=== PATIENT | female | born 1985 | race Hispanic/Latino ===

== ENCOUNTER 2021-01-13 18:13 | Emergency (ER) | payer SELFPAY ==
[2021-01-13 18:15] VITALS: BP 98/62; PULSE 87; RESP 16; TEMP 36.6; O2SAT 98; BMI 27.8
--- NOTE | 2021-01-13 18:42 | US_ITS ---
STUDY: FIRST TRIMESTER OBSTETRICAL ULTRASOUND REASON FOR EXAM: Female, 35 years old LLQ pain LMP: 12/02/20 TECHNIQUE: Transvaginal TECHNICAL QUALITY: Adequate. PRIOR ULTRASOUND: None. FINDINGS: There is visualization of a single gestational sac in a normal intrauterine position. The mean sac diameter (MSD) measures 2.5 cm, indicating an estimated gestational age (EGA) of 7 weeks, 4 days. The gestational sac shape is within normal limits. There is a visualized yolk sac. The placenta is non-visualized. There is visualization of a live embryo. The crown-rump length (CRL) measures 7.8 mm, indicating an estimated gestational age (EGA) of 6 weeks, 5 days. There is demonstrated cardiac activity with a heart rate of 130 bpm. The estimated gestation age (EGA) by LMP is 6 weeks, 0 days. The estimated date of delivery (MARIANELA) by LMP is 09/08/2021. The estimated gestation age (EGA) by US is 7 weeks, 1 days. The estimated date of delivery (MARIANELA) by US is 08/31/2021. The uterus measures 12.5 x 8.1 x 7.0 cm. There is no demonstrated uterine fibroid. The cervix is closed. The right ovary measures 3.0 x 2.2 x 3.1 cm. There is no right ovarian cyst. There is no visualized right adnexal mass or complex lesion. The left ovary measures 2.3 x 1.8 x 2.5 cm. There is no left ovarian cyst. There is no visualized left adnexal mass or complex lesion. There is no fluid in the cul de sac. US/Transvaginal w/Preg US IMPRESSION: Single live intrauterine gestation with ultrasound EGA of approximately 7 weeks 1 day. Electronically Signed: Francisco Guevara MD at 20:42 EDT , Service support ,
--- NOTE | 2021-01-13 18:47 | ED.VIS.FEGU ---
HPI HPI - Female History of Present Illness Chief Complaint: Informant: patient and spouse/S.O. Pain Pain: Positive for Pelvic Pain Onset: Weeks Context: Gradual Onset Timing: Intermittent Quality: Positive for Cramping Current Severity: Mild Maximum Severity: Mild Bleeding Issue: Negative for Vaginal bleeding and Passing clots Associated Symptoms Associated Symptoms: Negative for Dysuria, Frequency, Urgency and Hematuria Test: Positive Sexually: Positive for Active Control: No control P: 3 Ab: 0 Narrative Narrative: 35-year-old female G4, P3 Ab0. Currently about 6 weeks. She is from [place] and speaks little to no French. Some of the history is obtained from her significant other and the rest was obtained by using the hourly sign language interpreter tablet. Patient states she has not felt well for a week. She has had some headaches and nausea and vomiting. She denies diarrhea. She denies any vaginal bleeding. She has mild left lower quadrant pelvic discomfort. 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 Prior similar symptoms: No PFSH PFSH Medical History No pertinent past medical history no medical history Home Medications NK 01/13/21 [History Last Taken Unknown] Allergy/AdvReac Type Severity Reaction Status Date / Time No Known Allergies Allergy Verified 01/13/21 19:19 no surgical history Social History Smoking Status: Smoker, status unknown ROS ROS ED ROS Narrative Patient complaining of headache with nausea and vomiting. Review of Systems ROS Unobtainable: Denies due to encephalopathy Constitutional Constitutional ED: Denies chills or fever(s) Eyes Eyes: Denies change in vision ENT ENT ED: Denies ear pain or sore throat Cardiovascular Cardiovascular: Denies chest pain Respiratory/Chest Respiratory/Chest: Denies dyspnea Gastrointestinal Gastrointestinal: Reports abdominal pain, nausea and vomiting; Denies constipation, diarrhea or melena Genitourinary Genitourinary ED: Denies dysuria or hematuria Musculoskeletal Musculoskeletal: Denies arthralgias or myalgias Integumentary Denies rash Neurologic Neurologic: Reports headache(s) Psychiatric Psychiatric: Denies depression Endocrine Endocrinology: Denies polyuria Hematologic/Lymphatic Hematologic/Lymphatic: Denies easy bruising Allergic/Immunologic Allergic/Immunologic ED: Denies urticaria EXAM Physical Exam Narrative Exam Narrative: 35-year-old female vital signs she is mildly hypotensive at 98/62. She is afebrile. She does not look septic or toxic. HEENT exam unremarkable except mild jammies membranes. No facial droop. No signs of trauma. Neck nontender no meningismus. No lymphadenopathy. Lungs clear to auscultation. Heart regular rhythm no murmur rate about 90. Abdomen soft. Nondistended normal bowel sounds no peritoneal signs. Very minimal left lower quadrant tenderness. Moving all 4 extremities. No edema. Neurologically she is awake and alert. Moving all 4 extremities. NIH score is 0. Const Vital Signs: 01/13/21 18:15 Temperature 97.8 F Temperature Source Temporal Pulse Rate 87 Respiratory Rate 16 Blood Pressure 98/62 Blood Pressure Mean 74 Pulse Ox 98 Oxygen Delivery Method Room Air Positive well nourished and well developed General Appearance ED: well developed HEENT Reports dry mucous membranes Negative for trauma or tenderness Mouth ED: Yes dry mucous membranes Mouth: dry mucous membranes Eyes PERRL and EOMs intact bilaterally Neck no lymphadenopathy, supple and no JVD Thyroid: Negative for tender Chest Wall inspection of chest normal Resp normal respiratory effort and clear to auscultation bilaterally Cardio regular rate and regular rhythm GI normal to inspection, nondistended, normoactive bowel sounds, soft to palpation, non-distended and no masses Palpation: tender Back/Spine no CVA tenderness Extremity normal to inspection and full ROM General Extremety ED: Negative for edema or tenderness General Extremity: Negative for edema Neuro CN's II-XII intact bilaterally Neuro Narrative: NIH equals 0. Sensorium / Orientation: alert Motor Exam: strength 5/5 throughout Psych mental status grossly normal Skin no rashes or lesions noted MDM MDM MDM Narrative Medical decision making narrative: 35-year-old G4, P3 Ab0 female with nausea vomiting and headache and currently 6 weeks . She has had no care. Reportedly is scheduled to have an . She is hypotensive most likely from dehydration nausea and vomiting. She will be treated with IV fluids and Zofran. Labs and ultrasound are pending. Lab Data Attestation: I reviewed the patient's lab results. Lab results narrative: White count 10. Hemoglobin 11 no labs available for comparison. Chemistries unremarkable normal creatinine and gap. hCG quant was 66,625. UA was normal. No signs of infection. Ultrasound showed a live intrauterine at about 7 weeks with a heart rate of 130. Repeat exam patient is doing well at 9:05 PM. Abdomen is benign. I discussed test results with her and her significant other. She will be discharged home with Zofran. She will be given Tylenol for her headache. Labs: Laboratory Results - last 24 hr 01/13/21 01/13/21 01/13/21 19:24 19:24 19:24 WBC 10.5 RBC 4.47 Hgb 11.2 L Hct 35.2 L MCV 78.7 L MCH 25.1 L MCHC 31.8 L RDW Std Deviation 44.9 H RDW Coeff of Erendira 15.7 H Plt Count 329 MPV 9.8 Immature Gran % (Auto) 0.400 Neut % (Auto) 65.6 Lymph % (Auto) 27.1 [place] % (Auto) 5.1 Eos % (Auto) 1.3 Baso % (Auto) 0.5 Absolute Neuts (auto) 6.9 Absolute Lymphs (auto) 2.85 Nucleated RBC % 0 Sodium 137 Potassium 3.8 Chloride 106 Carbon Dioxide 25.0 Anion Gap 6 BUN 11 Creatinine 0.58 Estim Creat Clear Calc 114.12 Est GFR (MDRD) Af Amer 155 Est GFR (MDRD) Non-Af 128 BUN/Creatinine Ratio 19.1 Glucose 93 Calcium 9.0 HCG, Quant 41380 H Urine Color Urine Clarity Urine pH Ur Specific [place] Urine Protein Urine Glucose (UA) Urine Ketones Urine Occult Blood Urine Nitrite Urine Bilirubin Urine Urobilinogen Ur Leukocyte Esterase Urine RBC Urine WBC Ur Squamous Epith Cells Amorphous Sediment Urine Bacteria Urine Mucus 01/13/21 20:35 WBC RBC Hgb Hct MCV MCH MCHC RDW Std Deviation RDW Coeff of Erendira Plt Count MPV Immature Gran % (Auto) Neut % (Auto) Lymph % (Auto) [place] % (Auto) Eos % (Auto) Baso % (Auto) Absolute Neuts (auto) Absolute Lymphs (auto) Nucleated RBC % Sodium Potassium Chloride Carbon Dioxide Anion Gap BUN Creatinine Estim Creat Clear Calc Est GFR (MDRD) Af Amer Est GFR (MDRD) Non-Af BUN/Creatinine Ratio Glucose Calcium HCG, Quant Urine Color Yellow Urine Clarity Sl. Cloudy Urine pH 6.5 Ur Specific [place] 1.015 Urine Protein Negative Urine Glucose (UA) Normal Urine Ketones 50 H Urine Occult Blood 25 H Urine Nitrite Negative Urine Bilirubin Negative Urine Urobilinogen Normal Ur Leukocyte Esterase Negative Urine RBC 0-5 SEEN Urine WBC 0 SEEN Ur Squamous Epith Cells 0-5 SEEN Amorphous Sediment 1+ URATE Urine Bacteria 0 SEEN Urine Mucus 0 SEEN Radiography Diagnostic Testing: Radiology Impression Obstetrics Ultrasound 01/13/21 18:42 IMPRESSION: Single live intrauterine gestation with ultrasound EGA of approximately 7 weeks 1 day. Electronically Signed: Francisco Guevara MD at 20:42 EDT , Service support , Discharge Plan Triage Chief Complaint: ED Provider: Ry Quinones Dx/Rx/DC Orders Prescriptions: No Action NK RF: 0 Primary Care Provider: Care Physician,No Primary
[2021-01-13] MEDS: Ondansetron 4 MG/2 ML Vial IV (19:23)
[2021-01-13] MEDS: 0.9% Normal Saline 1,000 ML 1000 ML IV (19:23)
[2021-01-13 19:41] LABS: Absolute Lymphocyte Count 2.85 X10^3/uL (0.83-4.51); Absolute Neutrophil Count 6.9 X10^3/uL (2.0-7.7); Basophil# 0.05 X10^3/uL; Basophil% 0.5 % (0-1); Eosinophil# 0.14 X10^3/uL; Eosinophils% 1.3 % (0-5); Hematocrit 35.2 % (37-47); Hemoglobin 11.2 g/dL (12.0-15.0); Lymphocyte # 2.85 X10^3/ul (0.83-4.51); Lymphocyte % 27.1 % (19-41); Mean Corp Hgb Conc 31.8 g/dL (32-36); Mean Corpuscular Hgb 25.1 pg (27.0-32.0); Mean Corpuscular Volume 78.7 fL (81-99); Mean Platelet Vol. 9.8 fl (6.2-12.0); Monocyte# 0.54 X10^3/uL; Monocyte% 5.1 % (0-10); NRBC Flagged by Analyzer 0 % (0-5); Neutrophil # 6.88 X10^3/uL (2.7-7.7); Neutrophil % 65.6 % (47-70); Platelet Count 329 K/mm3 (150-450); RBC Distribution Width CV 15.7 % (11.6-14.6); RBC Distribution Width SD 44.9 fl (35.1-43.9); Red Blood Count 4.47 M/mm3 (4.2-5.4); White Blood Count 10.5 K/mm3 (4.4-11.0)
[2021-01-13 19:56] LABS: Anion Gap 6 (5-15); BUN 11 mg/dL (7-18); BUN/Creat Ratio 19.1 RATIO (10-20); Chloride 106 mmol/L (98-107); Creatinine, Serum 0.58 mg/dL (0.55-1.02); EST Glomerular Filtration Rate 128 mL/min (>60); Est Glom Filt Rate - Afr Amer 155 mL/min (>60); Estimated Creatinine Clearance 114.12 ml/min; Glucose 93 mg/dL (74-106); Potassium 3.8 mmol/L (3.5-5.1); Sodium Level 137 mmol/L (136-145)
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
[2021-01-13 20:46] LABS: Bacteria 0 SEEN /hpf (None Seen); Mucous, Urine 0 SEEN /hpf (<or=2+); White Blood Cells 0 SEEN /hpf (0-5)
[2021-01-13 20:48] LABS: Color, Urine Yellow (Yellow); Glucose, Dipstick Normal (Normal); Ketone-Dipstick 50 mg/dl (Negative); Leukocyte Esterase-Dipstick Negative /ul (Negative); Nitrite-Dipstick Negative (Negative); Occult Blood-Urine 25 /ul (Negative); Protein-Dipstick Negative (Negative); Specific Gravity, Urine 1.015 (1.002-1.030); Urine Bilirubin Dipstick Negative (Negative); Urine Clarity Sl. Cloudy (Clear); Urine Urobilinogen Normal (Normal); Urine pH 6.5 (5.0 - 8.0)
[2021-01-13 20:58] LABS: Amorphous Sediment 1+ URATE; Red Blood Cells-Urine 0-5 SEEN /hpf (0-5); Squamous Epithelial Cells - UA 0-5 SEEN /hpf (5-10)
[2021-01-13] MEDS: Acetaminophen 500 MG Tablet 1000 MG PO (21:26)
[2021-01-13 21:41] VITALS: RESP 18
== END 2021-01-13 21:42 | disposition home or self-care (01) ==
PROVIDERS: Emergency Provider Emergency Medicine
DX: O26.891 Other specified pregnancy related conditions, first trimester (principal); R10.2 Pelvic and perineal pain; R51.9 Headache, unspecified; O21.9 Vomiting of pregnancy, unspecified; Z3A.01 Less than 8 weeks gestation of pregnancy
CPT/HCPCS: 76817; 80048; 81001; 84702; 85025; 96361; 96374; 99284; J7030; A4216; J2405

== ENCOUNTER 2021-12-20 14:19 | Emergency (ER) | payer SELFPAY ==
[2021-12-20 14:21] VITALS: BP 112/72; PULSE 74; RESP 16; TEMP 36.6; O2SAT 98; BMI 25.8
--- NOTE | 2021-12-20 15:06 | EDS_ITS ---
HPI <IHSAN Jean-Baptiste - Last Filed: 12/20/21 16:48> History of Present Illness Chief Complaint: Headache Narrative Narrative: 36-year-old female with no significant ankle history presents to the emergency department with complaints of 15 days of headache, right shoulder pain, right neck pain. Patient states that the pain is worse with movement of her right shoulder. Patient denies any known injury. Patient states she had to have episode of having difficulty remembering something. However patient has no weakness to her upper or lower extremities. Patient denies any fevers or chills. Patient denies any meningeal symptoms. Patient has not tried any medications for her headache or right shoulder pain. PFSH <IHSAN Jean-Baptiste - Last Filed: 12/20/21 16:48> PFSH Medical History No pertinent past medical history Home Medications ondansetron HCl [Zofran] 4 mg PO Q6H PRN #10 tab 01/13/21 [Rx Last Taken Unknown] cyclobenzaprine 10 mg PO BID PRN #10 tab 12/20/21 [Rx Last Taken Unknown] naproxen [Naprosyn] 500 mg PO BID PRN #20 tab 12/20/21 [Rx Last Taken Unknown] Allergy/AdvReac Type Severity Reaction Status Date / Time No Known Allergies Allergy Verified 01/13/21 19:19 Social History Smoking Status: Current every day smoker tobacco type: cigarettes ROS <IHSAN Jean-Baptiste - Last Filed: 12/20/21 16:48> ROS ED ROS Narrative Constitutional: Negative for fever, chills, weight loss, weakness Eyes: Negative for vision loss, vision change, double vision ENT: Negative for any sore throat, ear pain, congestion Cardiovascular: Negative for any chest pain, tightness, palpitations, racing heartbeat Respiratory: Negative for any cough, sputum production, hemoptysis, shortness of breath, shortness of breath on exertion, orthopnea Gastrointestinal: Negative for any abdominal pain, nausea, vomiting, diarrhea, constipation, blood in stool, blood in vomit : Negative for any urinary frequency, incontinence, dysuria, retention, blood in urine Muscle skeletal: Negative for any muscle joint pain, stiffness, myalgias, arthralgias. Positive for right cervical, right shoulder, right upper back pain. This is worse on palpation. Patient has increased pain with movement of the right arm. Neurological: Negative for any dizziness, syncope, numbness or tingling. Positive for headache Skin: Negative for any rashes, lumps, itching, abrasions, lacerations Psychiatric: Negative for any depression, anxiety, stress, suicidal ideation, homicidal ideation Hematologic: Negative for any easy bruising, excessive bruising, easy bleeding Allergies: Negative for any eczema, hives, rash EXAM <IHSAN Jean-Baptiste - Last Filed: 12/20/21 16:48> Physical Exam Narrative Exam Narrative: Vital signs reviewed. HEET: Head normocephalic atraumatic, TMs clear bilaterally. Posterior pharynx is clear, moist mucous membranes. Nares clear bilaterally. Neck: Supple with no lymphadenopathy or tenderness. No signs of meningismus, negative jolt sign. Cardiac: Regular rate and rhythm no murmurs gallops or rubs, equal peripheral pulses bilaterally. Respiratory: Lungs clear to auscultation bilaterally. No chest tenderness. Abdomen: Soft, nontender, nondistended. No abdominal bruit or pulsatile masses. No hepatosplenomegaly Extremities: No peripheral edema, no signs of gross trauma or deformity. Active full range of motion of all extremities. Patient has full range of motion, patient does have pain on palpation to the right trapezius, she has pinpoint tenderness, and certain movements can cause worsening pain. She states she feels pain all the way down her right arm, this is consistent with a cervical radiculopathy. Patient has full range of motion of her neck. Neuro: Cranial nerves II through XII intact, no focal neurological deficits. NIH score 0, patient is neurologically intact. Skin: Clean dry and intact with no rash, purpura, petechiae, vesicles or pustules. Backslash flank: No CVA tenderness, no midline spinal tenderness, no deformity. Psych: Normal mood and affect. No SI, HI or acute psychosis. Const Vital Signs: 12/20/21 14:21 Temperature 97.8 F Temperature Source Temporal Pulse Rate 74 Respiratory Rate 16 Blood Pressure 112/72 Blood Pressure Mean 85 Pulse Ox 98 Oxygen Delivery Method Room Air Positive well nourished and well developed General Appearance ED: well developed <Dr. Zane Guillen MD - Last Filed: 12/20/21 16:51> Physical Exam Const Vital Signs: 12/20/21 14:21 Temperature 97.8 F Temperature Source Temporal Pulse Rate 74 Respiratory Rate 16 Blood Pressure 112/72 Blood Pressure Mean 85 Pulse Ox 98 Oxygen Delivery Method Room Air [facility] <Serjio LlamasIHSAN - Last Filed: 12/20/21 16:48> [facility] Narrative Medical decision making narrative: Patient appears well, patient appears nonto xic, vital signs are stable. Patient presents to the emergency department headache, right upper back pain, right shoulder pain. Patient's physical examination is consistent with muscle skeletal pain. Patient did receive a CT scan of the brain for the headache that was over [address] the brain shows no evidence of intracranial pathology. Patient was given IM Toradol, IM Norflex, patient states that this did greatly improve her symptoms. Patient be sent home with naproxen, Flexeril and instructed to return for any worsening symptoms. Patient instructed to perform gentle stretching, ice and heat. Patient stable for discharge Radiography Diagnostic Testing: Clinical Impression(s) from Imaging Studies Brain CT 12/20/21 16:02 IMPRESSION: No evidence of intracranial pathology is seen. Electronically Signed: Fady Shirley MD at 16:16 EDT Reading Location ID and State: [facility] / [place] Tel , Service support , <Dr. Zane Guillen MD - Last Filed: 12/20/21 16:51> [facility] Narrative Medical decision making narrative: I have personally performed a face to face assessment of the patient and have reviewed the FABIEN Note. I performed a substantive portion of the visit including all aspects of the following. My davila findings include: History is positive for intermittent pressure type headache for the past 2 weeks that goes from the forehead to the back of the neck. She does endorse photosensitivity. She denies sonophobia. She denies double vision, blurred vision loss of vision. She denies rhinorrhea, congestion postnasal drainage or sore throat. She denies neck pain or neck stiffness. She denies problems with balance or walking. She does endorse nausea without vomiting. She denies urologic symptoms. There is no family history of subarachnoid hemorrhage or migraine headaches. There is no precipitating, aggravating or alleviating factors. Exam is unremarkable. Vital signs noted normal. Head is atraumatic normocephalic. Pupils equal round reactive. Extraocular muscles are intact. There is no nystagmus. There is no APD. Ears are normal. Posterior pharynx out erythema or exudate. Uvula midline. Neck is supple. There is no carotid bruits. Alert oriented x3. Cranials 2 through 12 intact. There is no dysmetria. Motor is 5/5. Sensations intact. There is no clonus or Babinski sign. Medical Decision Making patient with 2 weeks of headache no known history of headaches need to evaluate for sinus disease, tension headache, vascular headache doubt subarachnoid hemorrhage or neoplasm. Will obtain CT of the head. Other additions or changes: [None] Radiography Diagnostic Testing: Clinical Impression(s) from Imaging Studies Brain CT 12/20/21 16:02 IMPRESSION: No evidence of intracranial pathology is seen. Electronically Signed: Fady Shirley MD at 16:16 EDT Reading Location ID and State: [facility] / [place] Tel , Service support , Discharge Plan Triage Chief Complaint: Headache ED Midlevel Provider: Serjio Llamas ED Provider: Zane Guillen Dx/Rx/DC Orders Clinical Impression: Muscle strain, Headache Instructions: Self-Care for Headaches, Medicine for Pain Prescriptions: New naproxen [Naprosyn] 500 mg tablet 500 mg PO BID PRN (Reason: pain) Qty: 20 RF: 0 cyclobenzaprine 10 mg tablet 10 mg PO BID PRN (Reason: muscle spasm) Qty: 10 RF: 0 No Action ondansetron HCl [Zofran] 4 mg tablet 4 mg PO Q6H PRN (Reason: nausea and vomiting) Qty: 10 RF: 0 Primary Care Provider: Care Physician,No Primary Referrals: Adriana Austin DO [STAFF PHYSICIAN] - 3-5 Days if not improving Care Physician,No Primary [Primary Care Provider] - Activity Restrictions/Additional Instructions: Please return for any worsening symptoms. Please perform gentle stretching, ice and heat. Print Language: Kazakh Disposition Disposition: Home, Self Care
[2021-12-20] MEDS: Orphenadrine 60 MG/2 ML Ampul IM (15:26)
[2021-12-20] MEDS: Ketorolac 15 MG/ML Vial IM (15:26)
--- NOTE | 2021-12-20 16:02 | CT_ITS ---
INDICATION: headache EXAMINATION: CT BRAIN - CT Head or Brain W/O Contrast Injection TECHNIQUE: Multiple axial images were obtained of the head without intravenous contrast. A radiation dose optimization technique was used for this scan. IV Contrast dosage and agent: None. COMPARISON: None. FINDINGS: BRAIN PARENCHYMA: No intra- or extra-axial hemorrhage. No evidence of acute infarct. No intracranial mass or mass effect. There is preservation of the hunter/white matter interface. Posterior fossa structures are unremarkable. CSF SPACES: Appropriate for age. No hydrocephalus. Basal cisterns are patent. CALVARIUM, SKULL BASE, PARANASAL SINUSES AND MASTOID AIR CELLS: Clear. No discrete lytic or blastic abnormalities. ORBITS: Both globes, extraocular muscles, optic nerves and retrobulbar fat appear unremarkable. ASPECTS Score for Acute Strokes: 10 CT/Brain/Head without Contrast IMPRESSION: No evidence of intracranial pathology is seen. Electronically Signed: Fady Shirley MD at 16:16 EDT ,
[2021-12-20 16:53] VITALS: BP 116/74; PULSE 74; RESP 17
== END 2021-12-20 16:54 | disposition home or self-care (01) ==
PROVIDERS: Emergency Provider Emergency Medicine; Visit Provider Emergency Medicine
DX: S46.911A Strain of unspecified muscle, fascia and tendon at shoulder and upper arm level, right arm, initial encounter (principal); R51.9 Headache, unspecified; F17.210 Nicotine dependence, cigarettes, uncomplicated
CPT/HCPCS: 70450; 96372; 99282